=== PATIENT | male | born 1995 | race Caucasian/White ===

== ENCOUNTER 2018-08-14 17:22 | Emergency (ER) | payer OTHER ==
--- NOTE | 2018-08-14 17:46 | ER Document Report ---
HPI - HPI Time Seen by Provider: 08/14/18 17:41 Pain Level: 2 Notes: Patient is a 23-year-old male who presents emergency department complaining of tailbone pain over the last couple days. Patient has not noticed any discharge, but has noticed some redness in that area. Patient states that pressure makes the pain worse. 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 He has not had any injury. Denies IV drug abuse or history of spinal abscess. Denies drug allergies. No other concerns or complaints. No recent illness. Denies any headache, fever, neck pain, URI, sore throat, chest pain, palpitations, syncope, cough, shortness of breath, wheeze, dyspnea, abdominal pain, nausea/vomiting/diarrhea, urinary retention, dysuria, hematuria, loss of control of bowel or bladder, numbness/tingling, saddle anesthesia, muscle paralysis/weakness, or rash. - ROS Systems Reviewed and Negative: Yes All other systems reviewed and negative - CONSTITUTIONAL Constitutional: DENIES: Fever, Chills Past Medical History - Social History Smoking Status: Current Every Day Smoker Frequency of alcohol use: None Drug Abuse: None Family History: Reviewed & Not Pertinent Patient has suicidal ideation: No Patient has homicidal ideation: No Renal/ Medical History: Denies: Hx Peritoneal Dialysis Vertical Provider Document - CONSTITUTIONAL Agree With Documented VS: Yes Notes: PHYSICAL EXAMINATION: GENERAL: Well-appearing, well-nourished and in no acute distress. LUNGS: Breath sounds clear to auscultation bilaterally and equal. No wheezes rales or rhonchi. HEART: Regular rate and rhythm without murmurs, rubs, gallops. ABDOMEN: Soft, nontender, nondistended abdomen. No guarding, no rebound. No masses appreciated. Normal bowel sounds present. No CVA tenderness bilaterally. Buttock: there are multiple pilonidal pits noted with erythema midline and slightly to the right. Corresponds to pain described. Musculoskeletal: FROM to passive/active. Strength 5+/5. Extremities: No cyanosis, clubbing, or edema b/l. Peripheral pulses 2+. Capillary refill less than 3 seconds. NEUROLOGICAL: Normal speech, normal gait. PSYCH: Normal mood, normal affect. SKIN: see hpi Course - Re-evaluation Re-evalutation: 08/14/18 17:[address] Lynch, surgeon, who will come evaluate the patient. 08/14/18 18:10 Dr. Lynch will be performing debridement at the bedside. 08/14/18 19:34 Dr. Lynch completed procedure and would the patient to be placed on keflex for 10 days and percocet for pain with f/u next week in their office. Pt verbalized understanding of his instructions. Patient to return to the emergency department any other worsening/concerning symptoms as reviewed. Patient is in agreement. - Vital Signs Vital signs: Temp Pulse Resp BP Pulse Ox 97.7 F 81 18 145/82 H 98 08/14/18 17:33 08/14/18 17:33 08/14/18 17:33 08/14/18 17:33 08/14/18 17:33 Discharge - Discharge Clinical Impression: Pilonidal abscess Condition: Stable Disposition: HOME, SELF-CARE Additional Instructions: Keep the skin clean Wash with soap and water Tylenol/ibuprofen if needed Triple antibiotic ointment daily Take medication as directed Monitor for any worsening symptoms Recheck with your PCM in 3-5 days Follow-up in the general surgeon office next week for recheck* Return to the ED with any worsening symptoms and/or development of fever, headache, chest pain, palpitations, syncope, shortness of breath, trouble breathing, abdominal pain, n/v/d, abscess, purulent discharge, red streaks, worsening swelling, or other worsening symptoms that are concerning to you. Prescriptions: Cephalexin Monohydrate [Keflex 500 mg Capsule] 500 mg PO TID #30 capsule Oxycodone HCl/Acetaminophen [Percocet 5-325 mg Tablet] 1 tab PO TID #15 tab Forms: Elevated Blood Pressure, Return to Work Referrals: EJ LYNCH MD [ACTIVE STAFF] - Follow up in 1 week
--- NOTE | 2018-08-14 20:04 | PDOC CONSULTATION ---
History of Present Illness Patient complains of: Pain at mid buttocks History of Present Illness: ALEX JOSHI is a 23 year old male Presenting with couple days history of pain at the mid buttocks especially with the sitting position. It worsened today and he subsequently came into the emergency department. He denies any drainage. Denies any fever. He had a similar episode about 3-4 years ago that resolved on its own after about a month. Patient is not diabetic. He has no other significant medical history. Past Medical History Medical History: None Past Surgical History Past Surgical History: Reports: Other - [place] teeth extraction Social History Smoking Status: Current Every Day Smoker Frequency of Alcohol Use: None Hx Prescription Drug Abuse: No Family History Family History: Reviewed & Not Pertinent Parental Family History Reviewed: No Children Family History Reviewed: No Sibling(s) Family History Reviewed.: No Medication/Allergy Home Medications: Cephalexin Monohydrate [Keflex 500 mg Capsule] 500 mg PO TID #30 capsule 08/14/18 Oxycodone HCl/Acetaminophen [Percocet 5-325 mg Tablet] 1 tab PO TID #15 tab 08/14/18 Allergies/Adverse Reactions: No Known Allergies Allergy (Verified 08/14/18 17:35) Physical Exam Vital Signs: Temp Pulse Resp BP Pulse Ox 97.7 F 81 18 145/82 H 98 08/14/18 17:33 08/14/18 17:33 08/14/18 17:33 08/14/18 17:33 08/14/18 17:33 Intake & Output 08/13/18 08/14/18 08/15/18 06:59 06:59 06:59 Weight 95.254 kg General appearance: PRESENT: no acute distress, cooperative Skin exam: PRESENT: other - At midline buttocks 3 small pits noted with small amount of purulent drainage with marked tenderness at the midline much more so on the right with a sense of fluctuance with mild erythema. Assessment & Plan - Diagnosis (1) Pilonidal abscess Is this a current diagnosis for this admission?: Yes Plan: Pilonidal cyst abscess. Early. I have discussed with the patient risk and benefits of surgical drainage now versus antibiotics alone. In this situation I felt that both options were reasonable. Patient wanted the surgical drainage if it afforded higher chance of quicker recovery. I discussed with him the risk and benefits and the nature of the surgery. Risk of recurrence and bleeding discussed. I informed him that I will make a hole off of the midline on the right side over the region of maximal tenderness and drain the underlying abscess through this hole. Leave the midline pits alone for now. Keep him on antibiotics after surgery. Have him return back for follow-up at [facility]. After he has fully recovered from the underlying infection, consider him for a pit picking surgery in the office. Patient understood and wished to undergo the drainage procedure. Procedure was performed. Cultures were sent. Patient will follow-up at [facility] next week with Dr. Trevino. He is to call for any problems. I have discussed with the patient wound care instructions. He will removed the packing tomorrow in the shower and keep a dressing over the wound. He is to wash the wound in the shower once a da y and after each bowel movement. He will be sent home on Keflex and Percocet.
--- NOTE | 2018-08-14 20:10 | Operative Report ---
Operative Report DATE OF SURGERY: 08/14/18 PREOPERATIVE DIAGNOSIS: Pilonidal cyst abscess POSTOPERATIVE DIAGNOSIS: Pilonidal cyst abscess OPERATION: Pilonidal cyst abscess drainage SURGEON: EJ LYNCH ANESTHESIA: Local TISSUE REMOVED OR ALTERED: Pus sent for Gram stain and culture COMPLICATIONS: None ESTIMATED BLOOD LOSS: Minimal INTRAOPERATIVE FINDINGS: Small abscess in the subcutaneous tissue at the midline buttocks, with overlying pits PROCEDURE: Informed consent was obtained. Procedure was done at the patient's bedside in the emergency department. Patient's buttocks was taped apart. And his midline buttocks was prepped and draped in usual sterile fashion. Local anesthetic was administered. Patient had several small pits at the midline. He had fluctuance and marked tenderness at the midline and to the right. At the region of maximal tenderness and fluctuance off of the midline on the right side a 1 cm prairie band of skin was excised full-thickness using cautery. Using a hemostat it was tunneled to the small subcutaneous pocket toward the midline. This region was picked with a hemostat but I did not find any retained hair. The wound was then irrigated. Pus was sent for Gram stain and culture. The wound was packed lightly with gauze. Patient tolerated procedure well with no apparent complications.
[2018-08-14 20:24] VITALS: BP 123/74
== END 2018-08-14 20:26 | disposition home or self-care (01) ==
LOC: ER 17:22
DX: L05.01 Pilonidal cyst with abscess (principal); F17.200 Nicotine dependence, unspecified, uncomplicated
CPT/HCPCS: 87070; 87077; 87186; 87205; 99283

== ENCOUNTER 2018-08-18 02:55 | Emergency (ER) | payer OTHER ==
[2018-08-18] MEDS ORDERED: OXYCODONE-ACETAMINOPHEN 5-325 MG TABLET PO ONE (03:32)
[2018-08-18 04:17] LABS: ABSOLUTE BASOPHILS # (AUTO) 0.1 10^3/uL (0.0-0.2); ABSOLUTE EOSINOPHILS # (AUTO) 0.1 10^3/uL (0.0-0.6); ABSOLUTE LYMPHOCYTES (AUTO) 1.5 10^3/uL (0.5-4.7); ABSOLUTE NEUT (AUTO) 9.7 10^3/uL (1.7-8.2); BASOPHILS % (AUTO) 0.4 % (0-2); EOSINOPHILS % (AUTO) 0.9 % (0-6); HEMOGLOBIN 15.5 g/dL (13.5-17.0); LYMPHOCYTES % (AUTO) 11.9 % (13-45); MEAN CORPUSCULAR HEMOGLOBIN 31.9 pg (27.0-33.4); MEAN CORPUSCULAR VOLUME 89 fl (80-97); MONOCYTES % (AUTO) 8.3 % (3-13); PLATELET COUNT 207 10^3/uL (150-450); RED BLOOD COUNT 4.85 10^6/uL (4.35-5.55); RED CELL DISTRIBUTION WIDTH 13.3 % (11.5-14.0); SEGMENTED NEUTROPHILS % (AUTO) 78.5 % (42-78); TOTAL CELLS COUNTED % (AUTO) 100 %; WHITE BLOOD COUNT 12.4 10^3/uL (4.0-10.5)
[2018-08-18] MEDS ORDERED: SULFAMETHOXAZOLE/TRIMETHOPRIM 800-160 MG TABLET PO ONE (04:24)
[2018-08-18 04:30] LABS: ANION GAP 9 (5-19); BLOOD UREA NITROGEN 14 mg/dL (7-20); CALCIUM 9.3 mg/dL (8.4-10.2); CARBON DIOXIDE 23 mmol/L (22-30); CHLORIDE 109 mmol/L (98-107); GLUCOSE 132 mg/dL (75-110); POTASSIUM 4.2 mmol/L (3.6-5.0)
--- NOTE | 2018-08-18 04:36 | ER Document Report ---
ED General - General Chief Complaint: Abscess Stated Complaint: PAINFUL CYST Time Seen by Provider: 08/18/18 03:32 Notes: Patient is a 23-year-old male presents to the emergency department for increased pain to a pilonidal abscess. Patient was at this facility on 08/14/[address] Monique who did a bedside incision and drainage and instructed the patient to follow-up in their office. Patient states he has been taking ant ibiotics as prescribed, Keflex and also Percocet for pain. Patient states he has not yet followed up in the office. Patient states this evening he had his girlfriend checked the wound and she noted increased purulent drainage and increased pain per patient. Patient states he did take his oral temperature and it was 101.0. Patient states at 1:00 in the morning he took 1 Percocet 5/325. Patient denies taking any other antipyretics. Patient states he does have a history of a pilonidal cyst multiple years ago with no surgical debridement. Patient's denying any history of MRSA infections. Past medical history: None Medications: Keflex, Percocet Allergies: None TRAVEL OUTSIDE OF THE [place] IN LAST 30 DAYS: No - Related Data Allergies/Adverse Reactions: No Known Allergies Allergy (Verified 08/14/18 17:35) Past Medical History - General Information source: Patient - Social History Smoking Status: Unknown if Ever Smoked Family History: Reviewed & Not Pertinent Patient has suicidal ideation: No Patient has homicidal ideation: No Renal/ Medical History: Denies: Hx Peritoneal Dialysis Past Surgical History: Reports: Other - [place] teeth extraction Review of Systems - Review of Systems Constitutional: See HPI EENT: No symptoms reported Cardiovascular: No symptoms reported Respiratory: No symptoms reported Gastrointestinal: No symptoms reported Genitourinary: No symptoms reported Male Genitourinary: No symptoms reported Musculoskeletal: See HPI Skin: See HPI Hematologic/Lymphatic: No symptoms reported Neurological/Psychological: No symptoms reported Physical Exam - Vital signs Vitals: Temp Pulse Resp BP Pulse Ox 98.6 F 100 16 124/87 H 99 08/18/18 03:09 08/18/18 03:09 08/18/18 03:09 08/18/18 03:09 08/18/18 03:09 - Notes Notes: GENERAL: Alert, interacts well. No acute distress. HEAD: Normocephalic, atraumatic. EYES: Pupils equal, round, and reactive to light. Extraocular movements intact. ENT: Oral mucosa moist, tongue midline. NECK: Full range of motion. Supple. Trachea midline. LUNGS: Clear to auscultation bilaterally, no wheezes, rales, or rhonchi. No respiratory distress. HEART: Regular rate and rhythm. No murmur ABDOMEN: Soft, non-tender. Non-distended. Bowel sounds present in all 4 quadrants. EXTREMITIES: Moves all 4 extremities spontaneously. No edema, normal radial and dorsalis pedis pulses bilaterally. No cyanosis. BACK: no cervical, thoracic, lumbar midline tenderness. No saddle anesthesia, normal distal neurovascular exam. NEUROLOGICAL: Alert and oriented x3. Normal speech. cranial nerves II through XII grossly intact PSYCH: Normal affect, normal mood. SKIN: Warm, dry, normal turgor. Patient does have a 1 cm x 1 cm open area noted to the right buttocks near the gluteal cleft. Minor serosanguineous discharge noted. Patient does have 6 cm x 5 cm area of induration noted around that. No surrounding erythema or cellulitic tissue noted. Course - Re-evaluation Re-evalutation: 08/18/18 04:36 Patient's labs do reveal a slight leukocytosis of 12.4, Segmented neutrophils 78.5, absolute neutrophils 9.7. Discussed with Pt. need to follow up in the surgical office this morning. Discussed to keep taking ABX and pain medication as prescribed. There does not appear to be any cellulitic tissue noted around the wound. It does appear indurated and nonfluctuant at this time. Patient continues to be afebrile in the emergency department, stable for discharge. - Vital Signs Vital signs: Temp Pulse Resp BP Pulse Ox 98.6 F 100 16 124/87 H 99 08/18/18 03:09 08/18/18 03:09 08/18/18 03:09 08/18/18 03:09 08/18/18 03:09 - Laboratory Result Diagrams: 08/18/18 04:02 08/18/18 04:02 Laboratory results interpreted by me: 08/18/18 08/18/18 04:02 04:02 WBC 12.4 H Seg Neutrophils % 78.5 H Lymphocytes % 11.9 L Absolute Neutrophils 9.7 H Chloride 109 H Glucose 132 H Discharge - Discharge Clinical Impression: Pilonidal abscess Condition: Stable Disposition: HOME, SELF-CARE Instructions: Abscess ([facility]), Cephalexin ([facility]), Post Incision and Drainage, Oral Narcotic Medication ([facility]) Additional Instructions: As we discussed you have been seen and treated in the emergency department for an pilonidal abscess. Please make sure you follow-up in the surgical office today. Phone numbers and addresses will be provided in this packet. Please also continue to take prescription medications as prescribed. Please return to the emergency room should you have any other concerning symptoms. Forms: Return to Work Referrals: FARIHA AMATO MD [ACTIVE STAFF] - Follow up as needed
[2018-08-18 04:47] VITALS: BP 143/76
== END 2018-08-18 04:47 | disposition home or self-care (01) ==
LOC: ER 02:55
DX: L05.01 Pilonidal cyst with abscess (principal)
CPT/HCPCS: 36415; 80048; 85025; 99283

== ENCOUNTER 2018-08-27 17:36 | Emergency (ER) | payer OTHER ==
[2018-08-27] MEDS ORDERED: NORMAL SALINE 1000 ML 1,000 ML IV ONE (18:34)
[2018-08-27] MEDS ORDERED: ONDANSETRON HCL INJ/PF 4 MG/2 ML SDV IV ONE (18:34)
--- NOTE | 2018-08-27 18:35 | ER Document Report ---
ED Medical Screen (RME) - General Chief Complaint: Abscess Stated Complaint: POSSIBLE ABSCESS, NAUSEA, VOMITING Time Seen by Provider: 08/27/18 18:34 Mode of Arrival: Ambulatory Information source: Patient Notes: Patient presents complaining of increased pain to sacral area at the site where he recently had surgery to drain a pilonidal abscess. Patient states that he developed nausea and vomiting today and has vomited patient complains of increased drainage from the surgical wound as well. Patient had the surgery on 08/18/2018 and followed up with a surgeon for recheck on 08/22/2017. Patient does have a follow-up appointment in 5 days. I have greeted and performed a rapid initial assessment of this patient. A comprehensive ED assessment and evaluation of the patient, analysis of test results and completion of the medical decision making process will be conducted by additional ED providers. TRAVEL OUTSIDE OF THE [place] IN LAST 30 DAYS: No - Related Data Allergies/Adverse Reactions: No Known Allergies Allergy (Verified 08/27/18 17:42) Past Medical History Renal/ Medical History: Denies: Hx Peritoneal Dialysis Psychiatric Medical History: Denies: Hx Depression Past Surgical History: Reports: Other - [place] teeth extraction Physical Exam - Vital signs Vitals: Temp Pulse Resp BP Pulse Ox 98.4 F 77 16 131/79 H 100 08/27/18 18:17 08/27/18 18:17 08/27/18 18:17 08/27/18 18:17 08/27/18 18:17 - Abdominal Inspection: Normal Distension: No distension Bowel sounds: Normal Tenderness: Nontender Course - Vital Signs Vital signs: Temp Pulse Resp BP Pulse Ox 98.4 F 77 16 131/79 H 100 08/27/18 18:17 08/27/18 18:17 08/27/18 18:17 08/27/18 18:17 08/27/18 18:17
[2018-08-27 19:35] LABS: ABSOLUTE LYMPHOCYTES (AUTO) 1.9 10^3/uL (0.5-4.7); ABSOLUTE MONOCYTES (AUTO) 0.6 10^3/uL (0.1-1.4); ABSOLUTE NEUT (AUTO) 5.8 10^3/uL (1.7-8.2); BASOPHILS % (AUTO) 0.3 % (0-2); EOSINOPHILS % (AUTO) 0.6 % (0-6); HEMATOCRIT 48.8 % (37.9-51.0); HEMOGLOBIN 17.5 g/dL (13.5-17.0); LYMPHOCYTES % (AUTO) 22.3 % (13-45); MEAN CORPUSCULAR HEMOGLOBIN 31.7 pg (27.0-33.4); MEAN CORPUSCULAR HGB CONC 35.9 g/dL (32.0-36.0); MEAN CORPUSCULAR VOLUME 88 fl (80-97); MONOCYTES % (AUTO) 7.3 % (3-13); PLATELET COUNT 301 10^3/uL (150-450); RED BLOOD COUNT 5.53 10^6/uL (4.35-5.55); RED CELL DISTRIBUTION WIDTH 13.2 % (11.5-14.0); SEGMENTED NEUTROPHILS % (AUTO) 69.5 % (42-78); TOTAL CELLS COUNTED % (AUTO) 100 %; WHITE BLOOD COUNT 8.3 10^3/uL (4.0-10.5)
[2018-08-27 19:54] LABS: ALANINE AMINOTRANSFERASE 41 U/L (21-72); ALBUMIN 5.3 g/dL (3.5-5.0); ALKALINE PHOSPHATASE 60 U/L (38-126); ANION GAP 12 (5-19); ASPARTATE AMINO TRANSFERASE 32 U/L (17-59); BILIRUBIN,DIRECT 0.3 mg/dL (0.0-0.4); BILIRUBIN,TOTAL 0.9 mg/dL (0.2-1.3); BLOOD UREA NITROGEN 12 mg/dL (7-20); CALCIUM 10.3 mg/dL (8.4-10.2); CARBON DIOXIDE 28 mmol/L (22-30); CHLORIDE 102 mmol/L (98-107); GLUCOSE 83 mg/dL (75-110); LIPASE 48.2 U/L (23-300); POTASSIUM 3.9 mmol/L (3.6-5.0); SODIUM 142.2 mmol/L (137-145); TOTAL PROTEIN 8.6 g/dL (6.3-8.2)
[2018-08-28] MEDS ORDERED: ONDANSETRON HCL INJ/PF 4 MG/2 ML SDV IV ONE (00:55)
--- NOTE | 2018-08-28 00:55 | ER Document Report ---
ED General - General Chief Complaint: Abscess Stated Complaint: POSSIBLE ABSCESS, NAUSEA, VOMITING Time Seen by Provider: 08/27/18 18:34 Mode of Arrival: Ambulatory Notes: Patient is a 23-year-old male who presents emergency department with pain at his sacral area where she had his pilonidal abscess drained. He was also had some nausea, vomiting, and cold sweats. His symptoms started today. He called outpatient surgery and he was referred to the emergency department to have the on-call surgical list examined the patient. TRAVEL OUTSIDE OF THE [place] IN LAST 30 DAYS: No - Related Data Allergies/Adverse Reactions: No Known Allergies Allergy (Verified 08/27/18 17:42) Past Medical History - General Information source: Patient - Social History Smoking Status: Current Every Day Smoker Chew tobacco use (# tins/day): No Frequency of alcohol use: None Drug Abuse: None Family History: Reviewed & Not Pertinent Patient has suicidal ideation: No Patient has homicidal ideation: No Renal/ Medical History: Denies: Hx Peritoneal Dialysis Psychiatric Medical History: Denies: Hx Depression Past Surgical History: Reports: Hx Oral Surgery - wisdom, Other - [place] teeth extraction Review of Systems - Review of Systems Notes: REVIEW OF SYSTEMS: CONSTITUTIONAL : See HPI EENT: Denies eye, ear, throat, or mouth pain, discharge, or symptoms. Denies nasal or sinus congestion. CARDIOVASCULAR: Denies chest pain. RESPIRATORY: Denies shortness of breath, cough, congestion, difficulty breathing, or wheezing. GASTROINTESTINAL: Denies nausea, vomiting, and diarrhea. Denies abdominal pain. Denies constipation. GENITOURINARY: Denies difficulty urinating, burning, blood in urine, urgency or frequency. MUSCULOSKELETAL: Denies neck and back pain. Denies joint pain or swelling. SKIN: See HPI HEMATOLOGIC : Denies easy bruising or bleeding. LYMPHATIC: Denies swollen, painful, enlarged glands. NEUROLOGICAL: Denies no numbness or tingling denies weakness. Denies headache. Denies altered mental status. Denies alteration in speech. PSYCHIATRIC: Denies stress, anxiety, alteration in sleep patterns, or depression. All other systems reviewed and negative. Physical Exam - Vital signs Vitals: Temp Pulse Resp BP Pulse Ox 98.4 F 77 16 131/79 H 100 08/27/18 18:17 08/27/18 18:17 08/27/18 18:17 08/27/18 18:17 08/27/18 18:17 - Notes Notes: PHYSICAL EXAMINATION: GENERAL: Appears well, healthy, well-nourished, no acute distress. HEAD: Normocephalic, atraumatic. EYES: PERRL, conjunctiva normal, all extraocular movements intact, sclera nonicteric ENT: Moist mucous membranes. NECK: Supple, no noticeable swelling, redness, rash. Normal range of motion. LUNGS: Equal breath sounds bilaterally and clear to auscultation. No wheezes rales or rhonchi. CARDIOVASCULAR: S1-S2, regular rate, regular rhythm. Radial pulses 2+, normal. ABDOMEN: Normoactive bowel sounds. Soft, nontender, no guarding, no rebound tenderness, and no masses palpated. EXTREMITIES: Normal strength and range of motion, no pitting or edema. No cyanosis. NEUROLOGICAL: Moves all extremities upon command. Strength 5/5 in all extremities. PSYCH: Normal mood, normal affect. SKIN: Warm, dry. [place] drain noted to sacral area. Course - Re-evaluation Re-evalutation: Patient's labs are unremarkable at this time. His white blood cell count is unremarkable. His chemistries are normal. 08/28/18 01:06 Dr. Sparks came to bedside to assess the patient and he states that the patient is to continue his ibuprofen and acetaminophen for his pain and to continue his last dose of Keflex. Dr. Sparks also states the site is healing well. He will also follow-up with his appointment on Saturday with the outpatient clinic. Verbal discharge instructions were given to the patient. They verbalized understanding. They are stable for discharge. - Vital Signs Vital signs: Temp Pulse Resp BP Pulse Ox 98.4 F 77 16 131/79 H 100 08/27/18 18:17 08/27/18 18:17 08/27/18 18:17 08/27/18 18:17 08/27/18 18:17 - Laboratory Result Diagrams: 08/27/18 19:10 08/27/18 19:10 Laboratory results interpreted by me: 08/27/18 08/27/18 19:10 19:10 Hgb 17.5 H Calcium 10.3 H Total Protein 8.6 H Albumin 5.3 H Discharge - Discharge Clinical Impression: Pain at surgical incision Condition: Stable Additional Instructions: You were seen today in the emergency department for pain at your surgical site. He will still continue to have pain in the area. You have been given Zofran, medication to help with your nausea. Take 1 tablet every 4 hours as needed for nausea and vomiting. Please continue to take your antibiotics. Please keep your follow-up appointment with the surgical center on Saturday. Forms: Return to Work
[2018-08-28] MEDS ORDERED: ONDANSETRON ODT 4 MG TAB (6 TAB/ER DISP) PO PRN (01:12)
[2018-08-28 01:47] VITALS: BP 137/92
== END 2018-08-28 01:47 | disposition home or self-care (01) ==
LOC: ER 17:36
DX: L05.01 Pilonidal cyst with abscess (principal); Z98.890 Other specified postprocedural states; R11.2 Nausea with vomiting, unspecified; R61 Generalized hyperhidrosis; F17.200 Nicotine dependence, unspecified, uncomplicated
CPT/HCPCS: 99283; 96361; 96374; 36415; 83690; 85025; 80053; J2405 ×2; J7030

== ENCOUNTER 2018-09-19 03:38 | Emergency (ER) | payer OTHER ==
[2018-09-19] MEDS ORDERED: IBUPROFEN 600 MG TABLET PO ONE (05:40)
[2018-09-19] MEDS ORDERED: LIDOCAINE 1% INJ (10 MG/ML) 10 ML MDV INJ ONE (05:40)
--- NOTE | 2018-09-19 06:23 | ER Document Report ---
ED Skin Rash/Insect Bite/Abscs - General Chief Complaint: Abscess Stated Complaint: RECTAL ABCESS Time Seen by Provider: 09/19/18 05:34 Primary Care Provider: [facility] [Provider Group] - Follow up as needed Information source: Patient TRAVEL OUTSIDE OF THE [place] IN LAST 30 DAYS: No - HPI Patient complains to provider of: Tender/swollen area Notes: Patient is here with complaints of possible pilonidal abscess. Patient was diagnosed with a pilonidal abscess approximately a month ago. He had it drained in the ER and then followed up with surgery. He subsequently had to have an OR drainage as well. He had packing removed earlier this week and has a follow-up appointment scheduled with surgery on Saturday. Over the last few days he feels like the area has become more swollen gotten red, hot, tender to palpation. He denies any fevers. He denies any nausea, vomiting, diarrhea. No numbness, tingling, weakness. He states the pain is constant, moderate, worse with sitting and touching the area, better when he standing up or on his belly. No history of diabetes. No other rashes. No abdominal pain. No nausea, vomiting, diarrhea. No chest pain or shortness of breath. He denies any other complaints at this time. - Related Data Allergies/Adverse Reactions: No Known Allergies Allergy (Verified 08/27/18 17:42) Past Medical History - Social History Smoking Status: Current Some Day Smoker Family History: Reviewed & Not Pertinent Patient has suicidal ideation: No Patient has homicidal ideation: No Renal/ Medical History: Denies: Hx Peritoneal Dialysis Psychiatric Medical History: Denies: Hx Depression Past Surgical History: Reports: Hx Oral Surgery - wisdom, Other - [place] teeth extraction Review of Systems - Review of Systems -: Yes All other systems reviewed and negative Physical Exam - Vital signs Vitals: Temp Pulse Resp BP Pulse Ox 97.9 F 103 H 20 136/75 H 97 09/19/18 03:43 09/19/18 03:43 09/19/18 03:43 09/19/18 03:43 09/19/18 03:43 - Notes Notes: GENERAL: alert, cooperative, nontoxic, no distress. HEAD: normocephalic, atraumatic EYES: conjunctiva pink without discharge, no external redness or swelling. EARS: no external swelling, no external redness NOSE: atraumatic, no external swelling MOUTH/THROAT: mucous membranes moist and pink NECK: soft, supple, full range of motion, no meningismus. CHEST: no distress, lungs clear and equal throughout. No wheezing, rales, rhonchi. CARDIAC: regular rate and rhythm, no murmur, normal capillary refill, normal pulses. BACK: full range of motion, no CVA tenderness. EXTREMITIES: full range of motion of all extremities. No redness, no swelling. NEURO: alert and oriented 3, no focal deficits, full range of motion of all extremities. PYSCH: appropriate mood, affect. Patient is cooperative. SKIN: pink, warm, dry, no rash. Fluctuant tender mildly erythematous pilonidal abscess to the right side of the cleft. Course - Re-evaluation Re-evalutation: 09/19/18 06:26 Patient is nontoxic-appearing with stable vitals. Patient here with complaints of pain and tenderness to the pilonidal area. He had panel abscess drained a few times over the last month and had packing removed earlier this week by surgery. He has a follow-up appointment with surgery on Saturday. Over the last few days he is developed some increased redness, swelling and tenderness of this area. He is noted to have a pilonidal abscess. I was able to I&D this and expressed a large amount of purulent drainage. Sterile dressing was applied. Patient will be placed on Bactrim he will be given a prescription for [place] as well. Follow-up with his surgeon as scheduled on Saturday. Apply warm compresses. Follow-up sooner for worsening pain, fever, redness, any further concerns. - Vital Signs Vital signs: Temp Pulse Resp BP Pulse Ox 97.9 F 103 H 20 136/75 H 97 09/19/18 03:43 09/19/18 03:43 09/19/18 03:43 09/19/18 03:43 09/19/18 03:43 Procedures - Incision and Drainage Right Buttock Type: Simple Anesthetic type: 1% Lidocaine Blade size: 11 I&D procedure: Shurclens applied Incision Method: Incision made by scalpel Amount/type of drainage: Large amount of purulent drainage Notes: 09/19/18 06:28 Probe with hemostats. Irrigated with normal saline. 09/19/18 06:28 Sterile dressing applied. Patient tolerated procedure well with no immediate complications. Discharge - Discharge Clinical Impression: Pilonidal abscess of cleft Condition: Stable Disposition: HOME, SELF-CARE Instructions: Abscess ([facility]), Oral Narcotic Medication ([facility]), Post Incision and Drainage, Trimethoprim-Sulfa ([facility]) Additional Instructions: Take medication as prescribed. Apply warm compresses to the sore area. Follow- up with your surgeon as scheduled on Saturday. Follow-up sooner for worsening pain, fever, redness, drainage, any further concerns. Prescriptions: Hydrocodone/Acetaminophen [[place] 5-325 mg Tablet] 2 tab PO Q6H PRN #15 tab PRN Reason: Sulfamethoxazole/Trimethoprim [Bactrim Ds Tablet] 1 each PO BID #20 tablet Forms: Parent Work Note Referrals: [facility] [Provider Group] - Follow up as needed
[2018-09-19 06:46] VITALS: BP 126/68
== END 2018-09-19 06:49 | disposition home or self-care (01) ==
LOC: ER 03:38
DX: L05.01 Pilonidal cyst with abscess (principal); F17.200 Nicotine dependence, unspecified, uncomplicated
CPT/HCPCS: 99283